=== PATIENT | female | born 1990 | race Caucasian/White ===

== ENCOUNTER → 2021-06-09 13:52 | Outpatient (CLI) | payer BC, SELFPAY ==
[2021-06-09 15:44] LABS: COVID19 -Nasal RAPID Negative (Negative)
== END ==
PROVIDERS: Referring Provider Physician Assistant; Visit Provider Physician Assistant
DX: J31.2 Chronic pharyngitis (principal); Z20.822 Contact with and (suspected) exposure to COVID-19
CPT/HCPCS: 87070; 87147; 87635